=== PATIENT | male | born 1980 | race African-American/Black ===

== ENCOUNTER 2016-03-11 04:45 | Emergency (ER) | payer OTHER ==
[2016-03-11] MEDS ORDERED: ONDANSETRON 4 MG TAB.RAPDIS PO ONE (07:55)
[2016-03-11] MEDS ORDERED: HYDROCODONE/ACETAMINOPHEN 5-325 MG TABLET PO ONE (07:55)
--- NOTE | 2016-03-11 08:53 | ER Document Report ---
HPI - HPI Patient complains to provider of: cough, fever, headache Onset: Other - 2-3 days Onset/Duration: Persistent Quality of pain: Achy Severity: Severe Pain Level: 4 Context: Patient presents to the emergency department with complaints of productive cough fever headache for the past 2-3 days. He reports his chest ,ribs, stomach hurt when he coughs. He reports nausea vomiting diarrhea yesterday. He reports fever of 101-102 last night. He's been taking cough drops without relief of symptoms. He denies taking any kind of Tylenol or Motrin before arrival. Patient coughs with deep breath. No active vomiting/diarrhea today. Associated Symptoms: Productive cough, Diarrhea, Fever, Nausea, Vomiting Exacerbated by: Denies Relieved by: Denies Similar symptoms previously: No Recently seen / treated by doctor: No - DERM Skin Color: Normal Past Medical History - General Information source: Patient - Social History Smoking Status: Unknown if Ever Smoked Cigarette use (# per day): No Frequency of alcohol use: None Drug Abuse: None Occupation: [employer] Lives with: Family Family History: Hypertension, Other - MS - Medical History Medical History: Negative - Past Medical History Cardiac Medical History: Denies: Hx Hypertension Renal/ Medical History: Denies: Hx Peritoneal Dialysis Surgical Hx: Negative - Immunizations Immunizations up to date: Yes Hx Diphtheria, Pertussis, Tetanus Vaccination: Yes Vertical Provider Document - CONSTITUTIONAL Agree With Documented VS: Yes Exam Limitations: No Limitations General Appearance: WD/WN, No Apparent Distress - looks like he doesn't feel well but nontoxic looking - INFECTION CONTROL TRAVEL OUTSIDE OF THE [place] IN LAST 30 DAYS: No - HEENT HEENT: Atraumatic, Normocephalic, PERRLA. negative: Pharyngeal Erythema, Tympanic Membrane Bulging - NECK Neck: Normal Inspection, Supple - RESPIRATORY Respiratory: No Respiratory Distress, Rhonchi - CARDIOVASCULAR Cardiovascular: Regular Rate - GI/ABDOMEN Gastrointestinal: Abdomen Soft, Abdomen Non-Tender - nontender to palpation - BACK Back: Normal Inspection - MUSCULOSKELETAL/EXTREMETIES Musculoskeletal/Extremeties: JHON ANGEL - NEURO Level of Consciousness: Awake, Alert, Appropriate Motor/Sensory: No Motor Deficit - DERM Integumentary: Warm, Dry Course - Re-evaluation Re-evalutation: 03/11/16 08:53 Patient resting quietly 03/11/16 10:00 Patient drinking fluids no further vomiting reports he feels better instructed on negative chest x-ray negative. Instructed on medications importance of staying home rest, fluid, return for concerns, follow up with his provider. - Vital Signs Vital signs: Temp Pulse Resp BP Pulse Ox 98.4 F 20 140/84 H 03/11/16 04:50 03/11/16 04:50 03/11/16 04:50 - Diagnostic Test Radiology reviewed: Image reviewed, Reports reviewed - IMPRESSION: NO SIGNIFICANT RADIOGRAPHIC FINDING IN THE CHEST Discharge - Discharge Clinical Impression: Cough, elevated blood pressure Fever Qualifiers: Fever type: unspecified Qualified Code(s): R50.9 - Fever, unspecified Nausea & vomiting Qualifiers: Vomiting type: unspecified Vomiting Intractability: non-intractable Qualified Code(s): R11.2 - Nausea with vomiting, unspecified Condition: Stable Disposition: HOME, SELF-CARE Instructions: Antinausea Medication ([facility]), Diarrhea, Nonspecific ([facility]), Vomiting ([facility]), Oral Narcotic Medication ([facility]) Additional Instructions: *You have been evaluated for cough, fever, nausea/vomiting *Monitor your blood pressure. Your blood pressure was elevated today. This may be because you were anxious, in pain or because you need medication. It is important to follow up with your primary care provider for full evaluation. *Increase fluid intake as discussed *Take medication as prescribed *Monitor your temperature, take Tylenol as indicated *Follow up with a primary care provider within 3 days for recheck *Return to ED for worsening condition, changes, needs Prescriptions: Hydrocodone/Acetaminophen [[place] 5-325 Tablet] 1 each PO QID #15 tablet Ondansetron [Zofran Odt 4 mg Tablet] 1 - 2 tab PO Q4H #10 tab.rapdis Forms: Elevated Blood Pressure, Return to Work
[2016-03-11 10:06] VITALS: BP 138/94
== END 2016-03-11 10:03 | disposition home or self-care (01) ==
LOC: ER 04:45
DX: R05 Cough (principal); R50.9 Fever, unspecified; R11.2 Nausea with vomiting, unspecified; R51 Headache; R07.81 Pleurodynia; R10.9 Unspecified abdominal pain; R19.7 Diarrhea, unspecified; I10 Essential (primary) hypertension
CPT/HCPCS: 99283; 87804; 71020; S0119

== ENCOUNTER 2016-12-17 23:52 | Emergency (ER) | payer OTHER ==
[2016-12-18 00:30] VITALS: BP 153/80
--- NOTE | 2016-12-18 01:41 | ER Document Report ---
Doctor's Note Notes: 12/18/16 01:40 Picked up the patient's chart when to go evaluate him. When I walked in the room the patient asked to I was. I informed him I would be the physician would be caring for him. He has me if I was in charge of the ER. I informed him that I am in charge of his care and evaluating however that I am not in charge of the staff the ER. He says that he does not want to speak with me and that he wants to speak with the nursing coin machine supervisor or charge nurses in charge. I asked him if it be okay if I went and evaluate him in the meantime. Patient says he does not want me to evaluate him for now and only wants to speak with the charge nurse. I asked him if it is okay if I evaluate him after the charge nurse speaks with him. Patient will not answer me and says that he does not want to talk to me and he only wants to see the charge nurse. I walked out of the room and informed the charge nurse of the situation.
[2016-12-18] MEDS ORDERED: DEXAMETHASONE SOD PHOS INJ 10 MG/1 ML VIAL IM ONE (02:02)
--- NOTE | 2016-12-18 02:03 | ER Document Report ---
ED General - General Chief Complaint: Cough Stated Complaint: POSSIBLE COUGHING UP BLOOD Time Seen by Provider: 12/18/16 01:24 Notes: Patient is a 36-year-old male presents with complaint of recurrent cough and congestion. He says sometimes he coughs so much that he vomits. He says there has been few small streaks of blood in his vomit on occasion. He is a smoker. His children at home had similar symptoms but they have had resolution of their symptoms but he continues to cough. He said he had fever one day but has had no recurrent fevers. He denies history diabetes. He says he has no chronic medical problems. No history of asthma. Is otherwise healthy. He says it hurts around his diaphragm and chest whenever he coughs. He also hurts his throat. No other complaints at this time. TRAVEL OUTSIDE OF THE [place] IN LAST 30 DAYS: No - Related Data Allergies/Adverse Reactions: No Known Allergies Allergy (Verified 12/15/16 08:46) Past Medical History - Social History Smoking Status: Current Every Day Smoker Frequency of alcohol use: None Drug Abuse: None Family History: Hypertension, Other - MS Patient has suicidal ideation: No Patient has homicidal ideation: No - Past Medical History Cardiac Medical History: Reports: Hx Hypertension Renal/ Medical History: Denies: Hx Peritoneal Dialysis - Immunizations Immunizations up to date: Yes Hx Diphtheria, Pertussis, Tetanus Vaccination: Yes Review of Systems - Review of Systems Notes: My Normal Review Basic REVIEW OF SYSTEMS: CONSTITUTIONAL : Fever a few days ago. Current cough. EENT: Sore throat. CARDIOVASCULAR: Pain Around ribs with coughing. No anterior chest pain. RESPIRATORY: Current coughing. GASTROINTESTINAL: Vomiting. Some pain over diaphragm and upper abdomen from coughing. GENITOURINARY: Denies difficulty urinating, painful urination, burning, frequency, or blood in urine. MUSCULOSKELETAL: Denies neck or back pain or joint pain or swelling. SKIN: Denies rash or skin lesions. NEUROLOGICAL: Denies altered mental status or loss of consciousness. Mild headache. Denies weakness or paralysis or loss of use of either side. Denies problems with gait or speech. Denies sensory or motor loss. ALL OTHER SYSTEMS REVIEWED AND NEGATIVE. Physical Exam - Vital signs Vitals: Temp Pulse Resp BP Pulse Ox 98.5 F 71 20 153/80 H 97 12/18/16 00:28 12/18/16 00:28 12/18/16 00:28 12/18/16 00:28 12/18/16 00:28 - Notes Notes: General Appearance: Well nourished, alert, cooperative, no acute distress, no obvious discomfort. Vitals: reviewed, See vital signs table. Head: no swelling or tenderness to the head Eyes: PERRL, EOMI, Conjuctiva clear Mouth: No decreasd moisture Throat: No tonsillar inflammation, No airway obstruction Neck: Supple, no neck tenderness Lungs: No wheezing, No rales, No rhonci, No accessory muscle use, good air exchange bilaterally. Heart: Normal rate, Regular rythm, No murmur, no rub Abdomen: Normal BS, soft, No rigidity, No abdominal tenderness, No guarding, no rebound, no abdominal masses, no organomegaly Extremities: strength 5/5 in all extremities, good pulses in all extremities, no swelling or tenderness in the extremities, no edema. Skin: warm, dry, appropriate color, no rash Neuro: speech clear, oriented x 3, normal affect, responds appropriately to questions. Course - Vital Signs Vital signs: Temp Pulse Resp BP Pulse Ox 98.2 F 71 20 153/80 H 97 12/18/16 02:53 12/18/16 00:28 12/18/16 00:28 12/18/16 00:28 12/18/16 00:28 Discharge - Discharge Clinical Impression: Bronchitis Condition: Good Disposition: HOME, SELF-CARE Additional Instructions: BRONCHITIS: You have acute bronchitis. This disease is an infection or inflammation of the air passageways in your lungs. Symptoms usually include cough, low grade fever, shortness of breath, and wheezing. The cough usually persists for a couple of weeks. Most cases of bronchitis get better without antibiotics. We prescribe antibiotics when we believe bacteria are damaging your airways, or if there's high risk the bronchitis will worsen into pneumonia. Increase your fluid intake. A cool mist humidifier may make your lungs more comfortable. An expectorant (cough medicine that loosens phlegm) can help. If you smoke, STOP!!! Recovery from bronchitis can be somewhat slow, but you should see improvement within a day or two. Repeated episodes of bronchitis may result in lung damage -- for example, chronic bronchitis, recurrent pneumonias, or emphysema. Call the doctor if you develop increasing fever, shortness of breath, chest pain, bloody sputum, or otherwise worsen. If you have not improved at all after several days, contact the physician. COUGH-SUPPRESSANT & EXPECTORANT MEDICATION: You are to use a cough medication as needed for relief of symptoms. This medicine is a combination of an expectorant (to make the mucous thinner and more easily "coughed up") and a cough suppressant (to reduce the frequency of coughing). The cough-suppressant medicine is related to narcotics. You may experience mild nausea and sleepiness. Some patients who are very sensitive to narcotics may have stomach pain from this medicine. Taking the medicine with food reduces these side effects. Do not drive or work with machinery until you know how this medicine affects you. The expectorant should have no side effects. Iodine-containing expectorants (such as organidin) should not be taken by persons with active thyroid disease unless approved by your doctor. Call the doctor if you develop shortness of breath, hives, rash, itching, lightheadedness, or severe nausea and vomiting. INHALED BRONCHODILATORS: You have received a treatment of and/or prescription for an inhaled bronchodilator -- a medication which stimulates the airways in the lung to dilate. This improves the flow of air in asthma, bronchitis, and emphysema. These medicines have some similarity to adrenaline, and can cause similar side effects: shakiness, racing heart, and a sense of nervousness. These side effects decrease with time. Contact your doctor if these side effects are severe. Do not over-use the medicine. Too-frequent use of the inhaler may make it ineffective. Call your doctor if the inhaler is not controlling your symptoms at the prescribed doses. STEROID MEDICATION: You have been given an injection of medicine of the cortisone/steroid class. This medication is used to control inflammation or allergy. Josém Iguel t is usually only given for a short period of time, until the acute process subsides. There are usually no side effects from short-term use of cortisone-like medications. Some persons feel an increased sense of well-being and are not sleepy at bedtime. Long-term use of cortisone medications is best avoided, unless required for a severe condition. If your condition does not remit, or relapses after the course of corticosteroid medication, you should consult your physician. SMOKING: If you smoke, you should stop smoking. The tar and chemicals in cigarette smoke are harmful. Smoking has been shown to cause: emphysema chronic bronchitis lung cancer mouth and throat cancer stomach and pancreas cancer premature aging defects In addition, smoking increases ear and lung infections in children of smokers. FOLLOW-UP CARE: If you have been referred to a physician for follow-up care, call the physician s office for an appointment as you were instructed or within the next two days. If you experience worsening or a significant change in your symptoms, notify the physician immediately or return to the Emergency Department at any time for re-evaluation. Please use the inhaler as 2 puffs as needed for coughing not to exceed 2 puffs every 4 hours. Please follow up in 2-3 days with a physician for reevaluation. return to the ER if you are having fevers, difficulty breathing, intractable vomiting, or recurrence of coughing up blood. Prescriptions: Benzonatate [Tessalon Perle 100 mg Capsule] 100 mg PO Q8HP PRN #30 cap PRN Reason: Forms: Return to Work
[2016-12-18] MEDS ORDERED: ACETAMINOPHEN 325 MG TABLET PO ONE (02:46)
--- NOTE | 2016-12-18 03:02 | RADIOLOGY REPORT (SQ) ---
EXAM DESCRIPTION: CHEST PA/LAT COMPLETED DATE/TIME: 12/18/2016 2:31 am REASON FOR STUDY: recurrent cough COMPARISON: 2.2.17 EXAM PARAMETERS: NUMBER OF VIEWS: two views TECHNIQUE: Digital Frontal and Lateral radiographic views of the chest acquired. RADIATION DOSE: NA LIMITATIONS: none FINDINGS: LUNGS AND PLEURA: No opacities, masses or pneumothorax. No pleural effusion. MEDIASTINUM AND HILAR STRUCTURES: No masses or contour abnormalities. HEART AND VASCULAR STRUCTURES: Heart normal size. No evidence for failure. BONES: No acute findings. HARDWARE: None in the chest. OTHER: No other significant finding. IMPRESSION: NO SIGNIFICANT RADIOGRAPHIC FINDING IN THE CHEST. TECHNICAL DOCUMENTATION: JOB ID: [id number] [employer]- All Rights Reserved
[2016-12-18] MEDS ORDERED: ALBUTEROL SULFATE HFA (90 MCG/PUFF) 8 GM MDI (1 MDI/ER DISP) IH PRN (03:52)
[2016-12-18] MEDS ORDERED: BENZONATATE 100 MG CAPSULE PO ONE (04:30)
== END 2016-12-18 04:40 | disposition home or self-care (01) ==
LOC: ER 23:52
DX: J40 Bronchitis, not specified as acute or chronic (principal); F17.200 Nicotine dependence, unspecified, uncomplicated
CPT/HCPCS: 99283; 96372; 87804; 71020; J1100; J3490

== ENCOUNTER 2017-11-16 12:21 | Emergency (ER) | payer OTHER ==
[2017-11-16] MEDS ORDERED: KETOROLAC TROMETHAMINE 60 MG/2 ML SDV IM ONE (13:55)
[2017-11-16] MEDS ORDERED: DEXAMETHASONE SOD PHOS INJ 10 MG/1 ML VIAL IM ONE (13:55)
[2017-11-16] MEDS ORDERED: METHOCARBAMOL 750 MG TABLET PO ONE (13:56)
--- NOTE | 2017-11-16 13:59 | ER Document Report ---
HPI - HPI Pain Level: 5 Notes: Patient is a 37-year-old male who presents with chief complaint of low back pain with radiation down into his right hip and leg. Patient reports this started yesterday, states he has been more active lately than usual. Unsure of any specific injury. Denies the loss of bowel or bladder, denies any saddle anesthesia, denies any fever. - CONSTITUTIONAL Constitutional: DENIES: Fever, Chills - MUSCULOSKELETAL Musculoskeletal: REPORTS: Extremity pain - right lower extremity pain Past Medical History - General Information source: Patient - Social History Smoking Status: Current Every Day Smoker Chew tobacco use (# tins/day): No Frequency of alcohol use: Rare Drug Abuse: None Family History: Hypertension, Other - MS Patient has suicidal ideation: No Patient has homicidal ideation: No - Past Medical History Cardiac Medical History: Reports: Hx Hypertension Renal/ Medical History: Denies: Hx Peritoneal Dialysis - Immunizations Immunizations up to date: Yes Hx Diphtheria, Pertussis, Tetanus Vaccination: Yes Vertical Provider Document - CONSTITUTIONAL Notes: PHYSICAL EXAMINATION: GENERAL: Well-appearing, well-nourished and in no acute distress. HEAD: Atraumatic, normocephalic. EYES: Pupils equal round extraocular movements intact, conjunctiva are normal. ENT: Nares patent NECK: Normal range of motion LUNGS: No respiratory distress Musculoskeletal: Tenderness to palpation along right paraspinous muscles and lumbar spinal area. Negative straight leg raise. NEUROLOGICAL: Normal speech, normal gait. PSYCH: Normal mood, normal affect. SKIN: Warm, Dry, normal turgor, no rashes or lesions noted. - INFECTION CONTROL TRAVEL OUTSIDE OF THE [place] IN LAST 30 DAYS: No Course - Re-evaluation Re-evalutation: Patient reports significant improvement of his symptoms after administration of medications. Patient will be discharged home in stable condition, will take analgesics and muscle relaxers for the next several days. - Vital Signs Vital signs: Temp Pulse Resp BP Pulse Ox 97.7 F 71 18 156/89 H 99 11/16/17 12:37 11/16/17 12:37 11/16/17 12:37 11/16/17 12:37 11/16/17 12:37 Discharge - Discharge Clinical Impression: Back strain Qualifiers: Encounter type: initial encounter Qualified Code(s): S39.012A - Strain of muscle, fascia and tendon of lower back, initial encounter Condition: Stable Disposition: HOME, SELF-CARE Additional Instructions: LOW BACK PAIN: Three out of every four people will have an episode of disabling back pain during their lifetime. Most commonly the pain is due to straining of the muscles and ligaments in the low back. Usual treatment includes: (1) Rest on a firm surface. Avoid lying on your stomach. (2) Ice pack the painful area. After a few days, gentle heat may be used intermittently to relax the area, or ice packs can be continued. (3) Medication may be needed -- muscle relaxers and antiinflammatory medicines are commonly used. (4) As the back improves, exercises are prescribed to strengthen the back and abdominal muscles. Your doctor will advise you on the proper care for your back at each stage in your recovery. You may be better in a few days -- or healing may take several weeks. If new symptoms of a "herniated disc" (radiation of pain, numbness, or tingling down the back of the leg or weakness in the leg) occur, you should be re-examined. Further testing may be necessary. PAIN MEDICATION INJECTION: You have received an injection of a pain medication. You should experience significant pain relief within 45 minutes. If this injection was a narcotic -- it will impair your judgement, slow your reaction time and make you sleepy (as well as relieve your pain). Narcotics also can cause nausea. You should not drive, work with machinery, or perform any task requiring mental alertness until all effects of the medication are gone -- six to eight hours. Do not take any alcohol, or sedatives, and do not take any other medication without checking with your physician. ORAL NARCOTIC MEDICATION: You have been given a prescription for pain control. This medication is a narcotic. It's best taken with food, as nausea can result if taken on an empty stomach. Don't operate machinery or drive within six hours of taking this medication. Do not combine this medicine with alcohol, or with any medication which can cause sedation (such as cold tablets or sleeping pills) unless you get permission from the physician. Narcotics tend to cause constipation. If possible, drink plenty of fluids and eat a diet high in fiber and fruits. Please be aware that prescription narcotics also have the potential for abuse. People become addicted to these medications because of the general sense of wellbeing that they induce. This feeling along with a significant reduction in tension, anxiety, and aggression provides a stimulating seductive quality to these drugs. Once your pain is under control, we encourage you to discard your unused narcotics. MUSCLE RELAXERS: Muscle relaxing medications are usually prescribed for acute muscle spasm or injury to the neck and back. They are often combined with antiinflammatory pain medication for increased relief. You may stop the muscle relaxer when the pain and stiffness have improved. Start the medication again if spasms recur. Muscle relaxers may cause drowsiness, especially with the first dose. Do not operate machinery or drive while under the effects of the medication. Most muscle relaxers last up to 24 hours. Do not combine the medication with alcohol. ICE PACKS: Apply ice packs frequently against the painful area. Many different schedules are recommended, such as "20 minutes on, 20 minutes off" or "one hour ice, two hours rest." If you need to work, you may need to go longer between ice treatments. You should plan to have the area ice packed AT LEAST one fourth of the time. The ice should be applied over the wrap, tape, or splint, or over a layer of cloth -- not directly against the skin. Some ice bags have a built-in cloth and can be put directly on the skin. WARM PACKS: After approximately two days, apply gentle heat (such as a heating pad or hot water bottle) for about 20 to 30 minutes about every two hours -- at least four times daily. Warmth and elevation will help you make a more rapid recovery , and will ease the pain considerably. Do not use HOT heat, and never apply heat for longer than 30 minutes. The continuous heat can invisibly damage skin and muscles -- even when no burn is seen on the surface. Damaged muscles can make you MORE sore. FOLLOW-UP CARE: If you have been referred to a physician for follow-up care, call the physician s office for an appointment as you were instructed or within the next two days. If you experience worsening or a significant change in your symptoms, notify the physician immediately or return to the Emergency Department at any time for re-evaluation. Take ibuprofen 600 mg every 6 hours for pain. Use the narcotic pain medication only for severe pain. Use the muscle relaxers as prescribed. Ice and heat as outlined above. Follow-up with your primary care provider if not getting any better over the next 5-7 days. Prescriptions: Hydrocodone/Acetaminophen [Hydrocodon-Acetaminophen 5-325] 1 each PO Q4H #12 tablet Methocarbamol [Robaxin 750 mg Tablet] 750 mg PO Q6H #40 tablet Forms: Return to Work
[2017-11-16 14:29] VITALS: BP 148/92
== END 2017-11-16 14:50 | disposition home or self-care (01) ==
LOC: ER 12:21
DX: S39.012A Strain of muscle, fascia and tendon of lower back, initial encounter (principal); M25.551 Pain in right hip; M79.604 Pain in right leg; X58.XXXA Exposure to other specified factors, initial encounter; F17.200 Nicotine dependence, unspecified, uncomplicated; I10 Essential (primary) hypertension
CPT/HCPCS: 99283; 96372; J1885; J3490; J1100

== ENCOUNTER 2018-02-20 10:28 | Emergency (ER) | payer OTHER ==
--- NOTE | 2018-02-20 11:35 | ER Document Report ---
ED Eye Complaint - General Chief Complaint: Redness of Eye Stated Complaint: EYE PAIN Time Seen by Provider: 02/20/18 11:29 Notes: Patient says that his left eye was swollen and itching this morning. He says that he spent the weekend helping his [id number] move and that his ggjowij-qg-cix has pinkeye for which she was given eyedrops. Patient says his eye was swollen closed this morning and he had to use a warm compress to get it open. He notes itching and burning under the left eye in the maxillary region. Eyeball itself does not feel too painful. Does not feel like a foreign body is present. Does not remember anything getting in his eye yet today. TRAVEL OUTSIDE OF THE [place] IN LAST 30 DAYS: No - Related Data Allergies/Adverse Reactions: No Known Allergies Allergy (Verified 02/20/18 10:31) Past Medical History - Social History Smoking Status: Current Every Day Smoker Frequency of alcohol use: None Drug Abuse: None Family History: Reviewed & Not Pertinent, Hypertension, Other - MS Patient has suicidal ideation: No Patient has homicidal ideation: No - Past Medical History Cardiac Medical History: Reports: Hx Hypertension - Immunizations Immunizations up to date: Yes Hx Diphtheria, Pertussis, Tetanus Vaccination: Yes Review of Systems - Review of Systems Notes: CONSTITUTIONAL : Denies fever. CARDIOVASCULAR: Denies chest pain. RESPIRATORY: Denies cough, chest congestion, or shortness of breath. GASTROINTESTINAL: Denies abdominal pain or nausea, vomiting, or diarrhea. GENITOURINARY: Denies difficulty or painful urinating, urinary frequency, blood in urine. Physical Exam - Vital signs Vitals: Temp Pulse Resp BP Pulse Ox 99.2 F 73 16 152/79 H 98 02/20/18 10:39 02/20/18 10:39 02/20/18 10:39 02/20/18 10:39 02/20/18 10:39 Notes: PHYSICAL EXAMINATION: GENERAL: Well-appearing, no acute distress. HEAD: Atraumatic, normocephalic. Face: Left upper eyelid is very minimally puffy. Conjunctiva not injected. No current tearing. No swelling on the margins of either the upper or lower lids like with a chelazion. Skin in the maxillary region does not appear to be irritated or red or infected. NECK: Normal range of motion, supple. LUNGS: Breath sounds clear and equal bilaterally. HEART: Regular rate and rhythm without murmurs heard. ABDOMEN: Soft, nontender. No guarding or rebound or masses felt. Course - Vital Signs Vital signs: Temp Pulse Resp BP Pulse Ox 97.3 F 66 18 145/89 H 98 02/20/18 11:51 02/20/18 11:51 02/20/18 11:51 02/20/18 11:51 02/20/18 11:51 Discharge - Discharge Clinical Impression: Conjunctivitis Condition: Stable Disposition: ADMITTED INPATIENT Additional Instructions: CONJUNCTIVITIS: You have an infection in your eye, commonly known as "pink eye." Conjunctivitis causes redness, mild discomfort, itching, and mattering on the eyelids. It is very contagious, so you must be careful to wash your hands after touching your face so you don't pass the infection on to others. Conjunctivitis is caused by both viruses and bacteria. It usually responds quickly to treatment with antibiotic drops. These should be placed in the eye as prescribed (usually every three to four hours while you're awake). If you wear contact lenses, don't put them in your eyes until the infection is cleared and you are no longer using the drops (unless your doctor advises you otherwise). Should you develop increasing eye pain, severe swelling, decreased vision, or fail to improve as expected, please return for re-examination. EYEDROP USE: Eyedrops are most easily applied by pulling down on the cheek just below the lower eyelid. The lower lid will pop out to form a pouch into which you can drop the medicine. A small brief sting is not unusual, especially if the eye is reddened and irritated already. Use the drops exactly as recommended. You should see the doctor at once if there is a decrease in vision, swelling of the eye, or an increase in discomfort. ANTIBIOTIC THERAPY: You have been given an antibiotic prescription. It's important that you take all the medication, unless instructed otherwise by your physician. Failure to complete the entire course can result in relapse of your condition. Common side effects of antibiotics include nausea, intestinal cramping, or diarrhea. Women may develop vaginal yeast infections, and babies can get yeast (thrush) in the mouth following the use of antibiotics. Contact your physician if you develop significant side effects from this medication. Allergy to this antibiotic can result in hives, wheezing, faintness, or itching. If symptoms of allergy occur, stop the medication and call the doctor. In addition to the antibiotic drops, by a tube of hydrocortisone cream which is [id number] and you do not need a prescription for. Apply it with your finger tip to the skin around her eye 3 times a day. Do not put it in your eye. FOLLOW-UP CARE: If you have been referred to a physician for follow-up care, call the physicians office for an appointment as you were instructed or within the next two days. If you experience worsening or a significant change in your symptoms, notify the physician immediately or return to the Emergency Department at any time for re-evaluation. If you develop new or worsening symptoms of any sort, return for us to reevaluate at any time. Prescriptions: Polymyxin B Sulf/Trimethoprim [Polytrim Eye Drops] 1 drop OS QID #10 ml Forms: Return to Work
[2018-02-20 11:55] VITALS: BP 145/89
== END 2018-02-20 11:54 | disposition home or self-care (01) ==
LOC: ER 10:28
DX: H10.9 Unspecified conjunctivitis (principal); H57.12 Ocular pain, left eye; F17.200 Nicotine dependence, unspecified, uncomplicated; I10 Essential (primary) hypertension
CPT/HCPCS: 99282

== ENCOUNTER 2018-07-26 04:18 | Emergency (ER) | payer OTHER ==
[2018-07-26] MEDS ORDERED: ASPIRIN 81 MG TABLET, CHEWABLE PO ONE (06:01)
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
--- NOTE | 2018-07-26 07:56 | EKG REPORT ---
SEVERITY:- BORDERLINE ECG - SINUS RHYTHM : Confirmed by: Lupe Allen MD 26-Jul-2018 07:56:01
[2018-07-26 08:25] VITALS: BP 139/88
--- NOTE | 2018-07-26 16:59 | ER Document Report ---
Entered by DEB NUÑEZ SCRIBE 07/26/18 0801 Acting as scribe for:STACIE WILSON DO ED General - General Chief Complaint: Chest Pain Stated Complaint: COUGH Time Seen by Provider: 07/26/18 07:34 Primary Care Provider: AGUEDA WADDELL MD [Primary Care Provider] - Follow up as needed Mode of Arrival: Ambulatory Notes: 38 year old male that presents to the emergency department today with complaints of a x3 day history of a cough with associated rib pain, chest pain, sore throat, runny nose, headache, shortness of breath only with cough, and a small amount of hemoptysis. Patient states the hemoptysis started a while after the coughing began. Patient states he just saw the blood streaks last night in his sputum. Patient denies any earache, neck pain, fevers, nausea, or vomiting. TRAVEL OUTSIDE OF THE [place] IN LAST 30 DAYS: No - Related Data Allergies/Adverse Reactions: No Known Allergies Allergy (Verified 02/20/18 10:31) Past Medical History - General Information source: Patient - Social History Smoking Status: Current Every Day Smoker Cigarette use (# per day): Yes Chew tobacco use (# tins/day): No Frequency of alcohol use: Social Drug Abuse: None Lives with: Family Family History: Reviewed & Not Pertinent, Hypertension, Other - MS Patient has suicidal ideation: No Patient has homicidal ideation: No - Past Medical History Cardiac Medical History: Reports: Hx Hypertension Surgical Hx: Negative - Immunizations Immunizations up to date: Yes Hx Diphtheria, Pertussis, Tetanus Vaccination: Yes Review of Systems - Review of Systems Constitutional: denies: Fever EENT: See HPI, Nose congestion, Throat pain. denies: Ear pain Cardiovascular: See HPI, Chest pain Respiratory: See HPI, Cough, Other - Hemoptysis Gastrointestinal: denies: Nausea, Vomiting Genitourinary: No symptoms reported Male Genitourinary: No symptoms reported Musculoskeletal: denies: Neck pain Skin: No symptoms reported Hematologic/Lymphatic: No symptoms reported Neurological/Psychological: No symptoms reported -: Yes All other systems reviewed and negative Physical Exam - Vital signs Vitals: Temp Pulse Resp BP Pulse Ox 98.1 F 79 20 124/99 H 97 07/26/18 05:00 07/26/18 05:00 07/26/18 05:00 07/26/18 05:00 07/26/18 05:00 - Notes Notes: PHYSICAL EXAM GENERAL: Alert, interacts well. No acute distress. HEAD: Normocephalic, atraumatic. EYES: Pupils equal, round, and reactive to light. Extraocular movements intact. ENT: Oral mucosa moist, tongue midline. Nares patent, no nasal septal hematoma, TMs are cloudy but not opacified. Erythematous posterior oropharynx without any active bleeding. NECK: Full range of motion. Supple. Trachea midline. LUNGS: Clear to auscultation bilaterally, no wheezes, rales, or rhonchi. No respiratory distress. CHEST: Anterior chest wall tenderness with palpation. HEART: Regular rate and rhythm. No murmurs, gallops, or rubs. ABDOMEN: Soft, non-tender. Non-distended. Bowel sounds present in all 4 quadrants. No guarding, rigidity, or rebound. EXTREMITIES: Moves all 4 extremities spontaneously. No edema, radial and dorsalis pedis pulses 2/4 bilaterally. No cyanosis. NEUROLOGICAL: Alert and oriented x3. Normal speech. PSYCH: Normal affect, normal mood. SKIN: Warm, dry, normal turgor. No rashes or lesions noted. Course - Re-evaluation Re-evalutation: 07/26/18 08:16 Chest x-ray shows no acute process, no rib fracture, no signs of infiltrate. Patient has no personal history of PE, he is not having massive hemoptysis, the trace hemoptysis only started after several days of coughing. He does have other associated systemic symptoms that make this quite suspicious for a viral syndrome. Patient will be treated symptomatically and discharged to home. - Vital Signs Vital signs: Temp Pulse Resp BP Pulse Ox 98.1 F 69 16 139/88 H 98 07/26/18 05:00 07/26/18 08:25 07/26/18 08:25 07/26/18 08:25 07/26/18 08:25 - EKG Interpretation by Me Additional EKG results interpreted by me: 07/26/18 08:16 EKG shows sinus rhythm with a rate of 69, normal axis, normal intervals, no ST segment elevations or depressions, there are T wave inversions in lead III per my interpretation. Discharge - Discharge Clinical Impression: Cough with hemoptysis, Viral upper respiratory tract infection with cough, Costochondritis, acute Condition: Stable Disposition: HOME, SELF-CARE Additional Instructions: Upper Respiratory Illness You have a viral infection of the respiratory passages -- a "cold." This common infection causes nasal congestion, drainage, and often sore throat and cough. It is caused by a virus and is highly contagious. The disease usually lasts a week or more, though the worst symptoms are usually over in 3 or 4 days. There is no "cure" for the viral infection -- it must run its course. If there is a complication, such as bacterial infection in the nose, sinuses, middle ear, or bronchial tubes, antibiotics may be required, but antibiotics won't affect the virus. If you smoke, you should STOP!! Drink plenty of fluids. A humidifier may help. An expectorant medication or decongestant may make you more comfortable. Use acetaminophen or ibuprofen for fever or aches. See the doctor if fever persists over two or three days, if there is any significant worsening of your symptoms, or if you simply fail to improve as expected. Please use ibuprofen (Motrin or Advil) 600-800 mg every 8 hours as needed for pain or fever. You may also use acetaminophen (Tylenol) 1000 mg every 4-6 hours as needed for pain or fever. Please be aware that many medications contain acetaminophen, do not exceed a total of 1000 mg of acetaminophen every 6 hours. Please use nasal saline rinses such as a NetiPot or NeilMed Sinus Rinses. Costochondritis Your chest pain is coming from the rib cartilages in the chest wall. This is often caused by subtle straining of the ribs near the breastbone. The strain can occur from a mild injury, coughing or sneezing with a "cold," vigorous vomiting, or even from rib compression while sleeping. Often the pain doesn't begin until a couple of days after the strain. Persons with arthritis are especially prone to this type of pain, due to inflammation of the cartilage joints near the breast bone. But often, there is no clear reason why it happens. Rest from strenuous physical activity. This kind of chest pain is usually made worse by movement of the chest. Depending on the symptoms, we may prescribe medicine for pain and inflammation. Apply gentle warmth to the painful area for 15 minutes every hour or two. You should call contact the doctor immediately if things change. Further evaluation is needed if you develop a fever or cough, if the nature of the pain changes, or if you become short of breath. Prescriptions: Benzonatate [Tessalon Perles 100 mg Capsule] 100 mg PO Q8HP PRN #40 capsule PRN Reason: Mometasone Furoate [Nasonex] 1 spray NS Q12 #1 spray.pump Prednisone [Deltasone 20 mg Tablet] 2 tab PO DAILY 5 Days tablet Forms: Return to Work Referrals: AGUEDA WADDELL MD [Primary Care Provider] - Follow up as needed I personally performed the services described in the documentation, reviewed and edited the documentation which was dictated to the scribe in my presence, and it accurately records my words and actions.
== END 2018-07-26 08:25 | disposition home or self-care (01) ==
LOC: ER 04:18
DX: J06.9 Acute upper respiratory infection, unspecified (principal); R04.2 Hemoptysis; M94.0 Chondrocostal junction syndrome [Tietze]; R07.9 Chest pain, unspecified; R07.81 Pleurodynia; J02.9 Acute pharyngitis, unspecified; R09.89 Other specified symptoms and signs involving the circulatory and respiratory systems; R51 Headache; R06.02 Shortness of breath; F17.210 Nicotine dependence, cigarettes, uncomplicated; R09.81 Nasal congestion
CPT/HCPCS: 93005; 93010; 99283

== ENCOUNTER 2019-09-17 22:16 | Emergency (ER) | payer OTHER ==
[2019-09-17 22:38] VITALS: BP 154/84
[2019-09-18] MEDS ORDERED: HYDROCODONE/ACETAMINOPHEN 5-325 MG (6 TAB/ER DISP) PO PRN (02:46)
[2019-09-18] MEDS ORDERED: SULFAMETHOXAZOLE/TRIMETHOPRIM 800-160 MG TABLET PO ONE (02:46)
--- NOTE | 2019-09-18 02:49 | ER Document Report ---
HPI - HPI Time Seen by Provider: 09/18/19 02:26 Context: Patient is a 39-year-old male that comes to the emergency department for chief complaint of a swollen, tender area over his right face just behind his right eyebrow that has been developing for the past 2 days. He states it started out as a bump, he put a heat pack on it and it became much larger and more painful. He states pain radiates away from the area along his face. He denies fevers, chills, nausea, vomiting, any diagnosed past medical history. He denies history of the same. Past Medical History - General Information source: Patient - Social History Smoking Status: Never Smoker Drug Abuse: None Lives with: Family Family History: Reviewed & Not Pertinent, Hypertension, Other - MS - Past Medical History Cardiac Medical History: Reports: Hx Hypertension Renal/ Medical History: Denies: Hx Peritoneal Dialysis - Immunizations Immunizations up to date: Yes Hx Diphtheria, Pertussis, Tetanus Vaccination: Yes Vertical Provider Document - CONSTITUTIONAL General Appearance: WD/WN, No Apparent Distress - INFECTION CONTROL TRAVEL OUTSIDE OF THE [place] IN LAST 30 DAYS: No - HEENT HEENT: Atraumatic, Normal ENT Exam, Normocephalic - NECK Neck: Normal Inspection - RESPIRATORY Respiratory: Breath Sounds Normal, No Respiratory Distress - CARDIOVASCULAR Cardiovascular: Regular Rate, Regular Rhythm - GI/ABDOMEN Gastrointestinal: Abdomen Soft, Abdomen Non-Tender. negative: Abdomen Tender - BACK Back: Normal Inspection - MUSCULOSKELETAL/EXTREMETIES Musculoskeletal/Extremeties: MAEW, FROM, Non-Tender - NEURO Level of Consciousness: Awake, Alert, Appropriate - DERM Integumentary: Warm, Dry, No Rash, Abscess - There is a very circular very tender, slightly erythematous area over the right face just posterior and lateral to the right eyebrow. This is mobile, appears to have a small head on it, appears fluctuant. There is no nearby adenopathy, there is no swelling of the face otherwise, skin exam is otherwise unremarkable. Course - Re-evaluation Re-evalutation: Patient with a very circular mobile tender, swollen area over the right face. Dr. Cuellar this was performed with copious amount of did evaluate this and believes this is an infection, she does recommend drainage with an 18-gauge needle for evaluation.Cheesy drainage consistent with sebaceous cyst abscess. Swelling completely resolved after full drainage of this. Patient was placed on antibiotics. Discussed primary care follow-up, discussed possibility of recurrence and removal need, discussed return cautions. Patient states understanding and agreement. - Vital Signs Vital signs: Temp Pulse Resp BP Pulse Ox 77 17 154/84 H 98 09/17/19 22:37 09/17/19 22:37 09/17/19 22:37 09/17/19 22:37 Procedures - Incision and Drainage Right face Type: Single Blade size: Other - 18-gauge needle I&D procedure: Shurclens applied Incision Method: Incision made with needle Amount/type of drainage: About 4 cc of purulent cheesy drainage Discharge - Discharge Clinical Impression: Abscess Condition: Stable Disposition: HOME, SELF-CARE Additional Instructions: Your evaluation is consistent with a sebaceous cyst abscess, this has been drained, take the antibiotics as provided. Keep the area clean, clean with soap and water, place a dressing over the area for the next several days as this heals completely. Follow-up with primary care. Sometimes this recurs and needs to be removed when it is not infected, follow-up with primary care. Return if it becomes worse including spreading redness, swelling, fever, or any other concerning symptoms. Prescriptions: Sulfamethoxazole/Trimethoprim [Bactrim Ds Tablet] 1 each PO BID #14 tablet Forms: Return to Work Referrals: AGUEDA WADDELL MD [Primary Care Provider] - Follow up as needed
--- NOTE | 2019-09-18 06:49 | ER Document Report ---
Doctor's Note Notes: 09/18/19 06:47 Patient seen in conjunction with the physician physical therapy assistant, please see his note to correlate with mine. In short this is a 39-year-old male who presented to the ED with a 2-day history of a facial swelling, chills overlying his hinduism. It is painful. He denies any fevers. On exam, the patient is afebrile. He has a 2 cm fluctuant and tender, mobile mass, overlying the hinduism just lateral to the right eye. He does have other comedones noted. No overlying skin changes, erythema, or induration. No regional adenopathy noted in the occiput, posterior auricular, preauricular, cervical chains. on evaluation this appears to be an abscess. Plan made to anesthetize and drain the area. Patient tolerated this well. Please see the PAs note for the patient's remainder of the ED course and disposition.
== END 2019-09-18 02:56 | disposition home or self-care (01) ==
LOC: ER 22:16
DX: L02.01 Cutaneous abscess of face (principal); I10 Essential (primary) hypertension
CPT/HCPCS: 99283